=== PATIENT | male | born 1960 | race Caucasian/White ===

== ENCOUNTER 2016-12-14 10:17 | Emergency (ER) | payer OTHER ==
[~2016-12-14] VITALS: Ht 185.4 cm; Wt 79.4 kg
[~2016-12-14 10:17] MED LIST: VIBRAMYCIN100 MG PO
[2016-12-14 10:39] VITALS: BP 114/73
[2016-12-14] MEDS ORDERED: MOBIC15 M1 PO (12:01)
[2016-12-14] MEDS ORDERED: TRAMADOL HCL50 M1 PO (12:01)
--- NOTE | 2016-12-14 12:02 | ED GENERAL ADULT ---
History of Present Illness General Chief Complaint: Upper Extremity Problem Stated Complaint: BILATERAL LEG PAIN Source: patient, old records Exam Limitations: no limitations Vital Signs & Intake/Output Vital Signs & Intake/Output Vital Signs Date Time Temp Pulse Resp B/P Pulse O2 O2 Flow FiO2 Ox Delivery Rate 12/14 1039 98.2 80 18 114/73 98 Room Air Allergies Coded Allergies: NO KNOWN ALLERGIES (06/04/13) Reconcile Medications Meloxicam (Mobic) 15 MG TABLET 1 TAB PO DAILY PRN PAIN/INFLAMMATION Tramadol HCl 50 MG TABLET 1-2 TAB PO Q6 PRN pain Triage Note: C/O BILATERAL LEG PAIN X 1 MONTH, WORSE WHEN SITTING. STATES HE WAS TREATED FOR A TICK BITE WITH DOXYCYCLINE 1 MONTH AOG. STATES PAIN IS WORSE IN HIS LEGS. ? TICK BITE TO LEFT BACK. Triage Nurses Notes Reviewed? yes HPI: Patient is a 56-year-old male presents complaining of bilateral lower extremity pain. Patient reports an aching/muscle tightness pain from his mid thighs posteriorly down to his feet. Pain 1-2 months. Patient was seen in the emergency department approximately one month ago, had blood work that showed low white blood cell count, low platelet count, elevated AST and ALT. Patient was placed on doxycycline 100 mg twice a day for 10 days. Patient reports that he started to feel better after the doxycycline for about one week then pain returned and has been worsening. Patient is been taking Tylenol with minimal improvement. Patient denies lower extremity swelling, redness, fevers, chills, numbness, back pain Past History Travel History Traveled to [place] past 21 day No Medical History Any Pertinent Medical History? 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 No Review of Systems Review of Systems Constitutional: Denies: chills, fever. EENTM: Reports: no symptoms. Respiratory: Denies: cough, short of breath. Cardiovascular: Denies: chest pain. GI: Denies: abdominal pain, nausea, vomiting. Genitourinary: Reports: no symptoms. Musculoskeletal: Reports: see HPI. Skin: Reports: dryness (chronic). Neurological/Psychological: Denies: headache, numbness, paresthesia. Hematologic/Endocrine: Denies: bruising, bleeding. Immunologic/Allergic: Denies: splenectomy. Physical Exam Physical Exam General Appearance: well developed/nourished, alert, awake Head: atraumatic, normal appearance Eyes: Bilateral: normal appearance, PERRL, EOMI. Ears, Nose, Throat: normal pharynx, normal ENT inspection, hearing grossly normal Neck: normal inspection, supple, full range of motion Respiratory: normal breath sounds, chest non-tender, no respiratory distress, lungs clear Cardiovascular: regular rate/rhythm Peripheral Pulses: 2+ tibialis posterior (R), 2+ tibialis posterior (L), 2+ dorsalis pedis (R), 2+ dorsalis pedis (L) Back: normal range of motion, diffuse scaly skin, no erythema. Nevi right mid back, nontender Extremities: normal inspection, normal capillary refill, normal range of motion, no edema Neurologic/Psych: no motor/sensory deficits, awake, alert, oriented x 3, normal gait, normal mood/affect Skin: diffuse dry skin/scaling Core Measures ACS in differential dx? No CVA/TIA Diagnosis: No Severe Sepsis Present: No Septic Shock Present: No Progress Differential Diagnoses I considered the following diagnoses in my evaluation of the patient: dvt, lumbar radiculopathy, rheumatologic disease, osteoarthritis, muscle cramping, tick born illness Plan of Care: Previous records reviewed. Lyme titer and anaplasmosis were negative. Results of previous labs discussed with patient. Further labs and imaging deferred. Discussed with patient the importance of primary care follow-up for further workup and evaluation. Initial ED EKG: none Departure Departure Time of Disposition: 1200 Disposition: HOME OR SELF CARE Condition: Stable Clinical Impression Primary Impression: Lower extremity pain, bilateral Referrals: ALBERTO ROCHA DO, MD,HERMAN PATIENT HAS NO PRIMARY CARE DR (PCP/Family) URSZULA TAVAREZ MD Additional Instructions: Follow-up with one of the [facility] practice physicians listed in your discharge paperwork to establish a primary doctor in for further evaluation. Call this afternoon for appointment. Departure Forms: Customer Survey General Discharge Information Prescriptions: Current Visit Scripts Meloxicam (Mobic) 1 TAB PO DAILY PRN PAIN/INFLAMMATION #10 TAB Tramadol HCl 1-2 TAB PO Q6 PRN pain #15 TAB Critical Care Note Critical Care Note Critical Care Time: non-applicable
== END 2016-12-14 12:08 ==
LOC: ERH 10:17
DX: M79.604 Pain in right leg (principal); M79.605 Pain in left leg

== ENCOUNTER 2017-06-12 11:12 | Emergency (ER) | payer SELFPAY ==
[~2017-06-12] VITALS: Ht 185.4 cm; Wt 77.1 kg
[~2017-06-12 11:12] MED LIST changes: +MOBIC15 M1 PO; +TRAMADOL HCL50 M1 PO
[2017-06-12 11:20] VITALS: BP 125/84
--- NOTE | 2017-06-12 12:18 | ED THROAT/DENTAL COMPLAINT ---
History of Present Illness General Chief Complaint: Sore Throat, Dental Pain Stated Complaint: DENTAL ABCESS Source: patient, old records Exam Limitations: no limitations Vital Signs & Intake/Output Vital Signs & Intake/Output Vital Signs Date Time Temp Pulse Resp B/P B/P Pulse O2 O2 Flow FiO2 Mean Ox Delivery Rate 06/12 1120 99.0 100 16 125/84 Allergies Coded Allergies: NO KNOWN ALLERGIES (06/04/13) Reconcile Medications Amoxicillin/Potassium Clav (Augmentin 875-125 Tablet) 875 MG-125 MG TABLET 1 TAB PO BID DENTAL Oxycodone HCl/Acetaminophen (Percocet 5-325 MG Tablet) 5 MG-325 MG TABLET 1 TAB PO BID PAIN Triage Note: PT COMPLAINS OF L SIDE DENTAL ABCESS FOR THE PAST 2 DAYS. Triage Nurses Notes Reviewed? yes Onset: Abrupt Duration: day(s): (2), constant Timing: recent history Injury Environment: home Severity: moderate Severity Numbers: 7 Modifying Factors: Worsens With: eating. Associated Symptoms: DENIES HPI: 56-year-old male presents to ER for evaluation going that he day history of left -sided upper dental pain radiating into his cheek associated with swelling and headache. He's been taking ibuprofen without improvement. He denies recent trauma or injury, no cracked teeth. No difficulty swallowing no tongue or lip swelling. He is not sought care for the symptoms until today. No fever no chills. (LILO DORSEY) Past History Travel History Traveled to [place] past 21 day No Medical History Any Pertinent Medical History? 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 No (LILO DORSEY) Review of Systems Review of Systems Constitutional: Reports: see HPI. Comments Review of systems: See HPI, All other systems negative. Constitutional, no chills no fever, no malaise HEENT: no sore throat no congestion, no ear pain Cardiovascular: No chest pain , no palpitati Skin: no rashes, no change in skin Respiratory: No dyspnea no cough no sputum GI: No nausea no vomiting, no diarrhea, Muscle skeletal: No joint pain, no joint swelling, no back pain, no neck pain, Neurologic: No numbness no confusion, headache Psych: No stress Heme/endocrine: No bruising Immunology: No lymphadenopathy (LILO DORSEY) Physical Exam Physical Exam General Appearance: well developed/nourished, no apparent distress, alert Mouth/Throat: dental tenderness Comments: Well-developed well-nourished patient in no apparent distress. Head/Face: Atraumatic, left maxillary sinus tenderness to palpation, moderate left-sided facial swelling no overlying erythema, no periorbital erythema swelling Eyes: PERRL, EOMI, no conjunctival injection Ear:External auditory canal and Tympanic membranes clear, no erythema, no FB. Nose: atraumatic.Normal inspection: No bleeding, no septal hematoma Throat: Moist mucous membranes.Pharynx normal. Poor dentition no gingival abscess No pharyngeal erythema/exudate seen. No stridor/drooling or assymetry. No swelling or edema. Neck: Supple, no lymphadenopathy, FROM Back: FROM Cardiovascular: Regular rate and rhythms no murmurs Respiratory: No respiratory distress. Patient speaking in full complete sentences. Breath sounds clear to auscultation bilaterally: NO W/R/R Extremities: full range of motion Neuro: awake, alert, and oriented to person, place and time. There were no obvious focal neurologic abnormalities. Skin: Warm & dry;No appreciable rash on exposed skin Psych: Mood affect normal, normal memory normal judgment. Core Measures ACS in differential dx? No Severe Sepsis Present: No Septic Shock Present: No (LILO DORSEY) Progress Differential Diagnosis: carious tooth, epiglottitis, Ludwigs angina, odontogenic abscess, aviva-tonsillar abscess, stomatitis/gingivitis Plan of Care: I discussed with the patient at length all of their results. I had an extensive conversation regarding need for close follow up with their primary care physician this week as well as return precautions. I answered all of their questions, they feel comfortable with the plan and follow-up care. I discussed with the patient/family the medications that they will receive. I gave them signs and symptoms that could indicate an adverse reaction. I have advised them to limit their activities until they can see how they respond to the medication. (LILO DORSEY) Departure Departure Time of Disposition: 4 Disposition: HOME OR SELF CARE Condition: Stable Clinical Impression Primary Impression: Dental abscess Referrals: PATIENT HAS NO PRIMARY CARE DR (PCP/Family) Additional Instructions: FOLLOW UP WITH DENTAL CLINIC LIST PROVIDED. AUGMENTIN AND PERCOCET DIRECTED. USE CAUTION THE PERCOCET JANES NARCOTIC. NO DRIVING OR DRINKING ALCOHOL WHILE TAKING. THESE WERE SENT TO THE [facility] Departure Forms: Customer Survey General Discharge Information Prescriptions: Current Visit Scripts Amoxicillin/Potassium Clav (Augmentin 875-125 Tablet) 1 TAB PO BID #20 TAB Oxycodone HCl/Acetaminophen (Percocet 5-325 MG Tablet) 1 TAB PO BID #10 TAB (LILO DORSEY) PA/SMALL KICK PRESS OPERATOR Co-Sign Statement Statement: ED Attending supervision documentation- I saw and evaluated the patient. I have also reviewed all the pertinent lab results and diagnostic results. I agree with the findings and the plan of care as documented in the PA's/SMALL KICK PRESS OPERATOR's documentation. x I have reviewed the ED Record and agree with the PA's/SMALL KICK PRESS OPERATOR's documentation. [] Additions or exceptions (if any) to the PAs/SMALL KICK PRESS OPERATOR's note and plan are summarized below: [] (RIRI SIDDIQUI,ANA)
[2017-06-12] MEDS ORDERED: AUGMENTIN 875-1 EACH PO (12:26)
[2017-06-12] MEDS ORDERED: PERCOCET 5-3251 EACH PO (12:26)
== END 2017-06-12 12:40 ==
LOC: ERH 11:12
DX: K04.7 Periapical abscess without sinus (principal)